=== PATIENT | female | born 1955 | race Two or more races ===

== ENCOUNTER 2020-10-04 12:45 | Inpatient (IN) | payer OTHER ==
[~2020-10-04] VITALS: Ht 149.9 cm; Wt 39.0 kg
[2020-10-05] MEDS ORDERED: CENTRUM WOMEN1 EACH PO (08:23)
== END 2020-10-10 08:53 | disposition home or self-care (01) | DRG 741 ==
LOC: O/R 10-06 06:16 → OB/GYN 10-06 12:45
PROVIDERS: ADMIT Specialist; ATTEND Specialist
PROC: 0UT10ZZ Resection of Left Ovary, Open Approach (ICD-10-PCS; 2020-10-06)
PROC: 0UT60ZZ Resection of Left Fallopian Tube, Open Approach (ICD-10-PCS; 2020-10-06)
PROC: 07BC0ZZ Excision of Pelvis Lymphatic, Open Approach (ICD-10-PCS; 2020-10-06)
PROC: 0DNW0ZZ Release Peritoneum, Open Approach (ICD-10-PCS; 2020-10-06)
PROC: 0DBU0ZZ Excision of Omentum, Open Approach (ICD-10-PCS; 2020-10-06)
PROC: 0UT90ZZ Resection of Uterus, Open Approach (ICD-10-PCS; principal; 2020-10-06 15:00)
DX: C54.1 Malignant neoplasm of endometrium (principal); N83.202 Unspecified ovarian cyst, left side; D28.2 Benign neoplasm of uterine tubes and ligaments; D50.0 Iron deficiency anemia secondary to blood loss (chronic)